=== PATIENT | male | born 2000 | race African-American/Black ===

== ENCOUNTER 2020-01-12 22:26 | Emergency (ER) | payer MEDICAID ==
[~2020-01-12] VITALS: Ht 157.5 cm; Wt 49.9 kg
[2020-01-12] MEDS ORDERED: methylPREDNISolone SOD SUCC 125 MG/2 ML VL IV ONE (22:30)
[2020-01-12] MEDS ORDERED: SODIUM CHLORIDE 0.9% 1,000 ML IV ONE (22:30)
[2020-01-12 22:31] VITALS: BP 125/84
[2020-01-12] MEDS ORDERED: methylPREDNISolone SOD SUCC 125 MG/2 ML VL ONE (22:33)
== END 2020-01-12 23:07 | disposition home or self-care (01) ==
LOC: ER 22:29
DX: T78.40XA Allergy, unspecified, initial encounter (principal); X58.XXXA Exposure to other specified factors, initial encounter
CPT/HCPCS: 96374; 99283; J2930

== ENCOUNTER 2020-04-26 13:04 | Emergency (ER) | payer MEDICAID ==
[~2020-04-26] VITALS: Ht 160 cm; Wt 49.9 kg
[2020-04-26] MEDS ORDERED: KETOROLAC TROMETH 60MG/2ML VIAL IM ONE (15:15)
[2020-04-26 16:00] VITALS: BP 113/77
== END 2020-04-26 16:29 | disposition home or self-care (01) ==
LOC: ER 13:04
DX: G43.909 Migraine, unspecified, not intractable, without status migrainosus (principal); R42 Dizziness and giddiness
CPT/HCPCS: 96372; 99283; J1885

== ENCOUNTER 2020-07-06 18:36 | Emergency (ER) | payer MEDICAID ==
[~2020-07-06] VITALS: Ht 157.5 cm; Wt 49.9 kg
[2020-07-06 18:55] VITALS: BP 115/72
== END 2020-07-06 20:16 | disposition home or self-care (01) ==
LOC: ER 18:36
DX: U07.1 COVID-19 (principal)
CPT/HCPCS: 36415; 87426

== ENCOUNTER 2021-02-07 17:41 | Emergency (ER) | payer MEDICAID ==
[~2021-02-07] VITALS: Ht 157.5 cm; Wt 49.9 kg
[2021-02-07 18:46] LABS: Basophils # (auto) 0 10 ^3/uL (0-0.2); Basophils % (auto) 0.7 % (0.0-2.0); Eosinophils # (auto) 0 10 ^3/uL (0-0.8); Eosinophils % (auto) 0.4 % (0.0-7.0); Hematocrit 42.1 % (41.0-53.0); Hemoglobin 14.4 g/dL (13.5-17.5); Lymphocytes # (auto) 1.4 10 ^3/uL (0.4-5.4); Lymphocytes % (auto) 22.2 % (10.0-50.0); Mean Corpuscular Hemoglobin 28.6 pg (28.0-32.0); Mean Corpuscular Hgb Conc. 34.1 g/dL (32.0-36.0); Mean Corpuscular Volume 83.7 fL (80.0-100.0); Monocytes # (auto) 0.3 10 ^3/uL (0-1.3); Monocytes % (auto) 4.9 % (0.0-12.0); Neutrophils # (auto) 4.5 10 ^3/uL (1.6-8.6); Neutrophils % (auto) 71.8 % (37.0-80.0); Nucleated Red Blood Cells % 0.1 %; Red Blood Cells 5.03 10^6/uL (4.5-5.90); Red Cell Distribution Width 13.8 % (11.8-14.3); White Blood Cell 6.3 10^3/uL (4.4-10.8)
[2021-02-07] MEDS ORDERED: METOCLOPRAMIDE HCL 5MG/ml INJ 2ml VIAL IV ONE (19:00)
[2021-02-07] MEDS ORDERED: ACETAMINOPHEN 500 MG TAB PO ONE (19:00)
[2021-02-07] MEDS ORDERED: SODIUM CHLORIDE 0.9% 1,000 ML IV ONE (19:00)
[2021-02-07] MEDS ORDERED: KETOROLAC TROMETH 30 MG/ML 1ML VIAL IV ONE (19:00)
[2021-02-07 19:05] LABS: Alanine Aminotransferase 15 U/L (16-61); Albumin 4.1 g/dL (3.4-5.0); Anion Gap 4 (5-15); Aspartate Aminotransferase 11 U/L (15-37); BUN/Creatinine Ratio 7.1; Blood Urea Nitrogen 6 mg/dL (7-18); Carbon Dioxide 29 mmol/L (21-32); Chloride 106 mmol/L (98-107); GFR African American 145 mL/min; GFR Non-African American 120 mL/min; Glucose 93 mg/dL (74-106); Potassium 3.7 mmol/L (3.5-5.1); Sodium 139 mmol/L (136-145)
[2021-02-07 19:10] LABS: Alkaline Phosphatase 64 U/L (45-117); Bilirubin, Total 0.5 mg/dL (0.2-1.0); Total Protein 7.8 g/dL (6.4-8.2)
[2021-02-07 23:00] VITALS: BP 130/84
== END 2021-02-08 00:44 | disposition left against medical advice (07) ==
LOC: ER 17:41
DX: R07.89 Other chest pain (principal); G43.909 Migraine, unspecified, not intractable, without status migrainosus; Z91.018 Allergy to other foods
CPT/HCPCS: 36415; 71046; 80053; 83735; 83880; 84484; 85025; 93005; 96361; 96374; 96375; 99285; J1885; J2765; J7030

== ENCOUNTER 2024-07-02 15:58 | Emergency (ER) | payer MEDICAID ==
[~2024-07-02] VITALS: Ht 160 cm; Wt 50.0 kg
[2024-07-02] MEDS: KETOROLAC TROMETH 30 MG/ML 1ML VIAL IM ONE (16:32)
[2024-07-02] MEDS: cefTRIAXone SOD 1,000 MG VL IM ONE (16:32)
--- NOTE | 2024-07-02 16:32 | ED.PDOC ---
History of Present Illness(SKN HPI Comments Portions of this chart may have been created with an modal fluency direct voice recognition software. Occasional wrong-word or "sound-alike" substitutions may have occurred due to the inherent limitations of voice recognition software. Please read the chart carefully and recognize, using context, where these substitutions have occurred. This is a pleasant 24-year-old male with no medication hx presents for a chief complaint of an insect bite x1 day. Bite is located to the posterior right thigh. Complains of redness tenderness to touch. No other complaint. Denies drainage from the affected side. Denies fevers chills. Able to ambulate without assistive devices. Has not tried medications for the symptoms listed above Chief Complaint: Insect Bite Time Seen by MD: 16:25 Primary Care Provider: DENIES History of Present Illness: Nurses Notes, Medications, Allergies Allergies: Coded Allergies: Avocado (Verified Allergy, Unknown, 02/07/21) Home Meds Active Scripts Ibuprofen Micronized (Ibuprofen) 800 Mg Tab, 800 MG PO TID for 14 Days, #42 TAB 0 Refills Prov:NICOLE OSORIO [employer] 07/02/24 Cephalexin Monohydrate (Cephalexin) 500 Mg Tab, 1 TAB PO QID for 5 Days, #20 TAB 0 Refills Prov:NICOLE OSORIO [employer] 07/02/24 Information Source: Patient Mode of Arrival: Ambulatory Past Medical History PAST MEDICAL HISTORY: Denies Surgical History: Denies all surgeries Family History Family History: Reviewed,noncontributory to illness Social History Smoker: Non-Smoker Alcohol: Denies ETOH Use Drugs: Denies Drug Use Lives In: Home All Other Systems: Reviewed and Negative (Per HPI) Physical Exam General Appearance: No Apparent Distress, Normal HEENT: Normal ENT Inspection, Pharynx Normal, TMs Normal Neck: Full Range of Motion, Non-Tender, Normal, Normal Inspection Respiratory: Chest Non-Tender, Lungs Clear, No Accessory Muscle Use, No Respiratory Distress, Normal Breath Sounds Cardiovascular: No Edema, No JVD, No Murmur, No Gallop, Normal Peripheral Pulses, Regular Rate/Rhythm Breast Exam: Deferred Gastrointestinal: No Organomegaly, Non Tender, No Pulsatile Mass, Normal Bowel Sounds, Soft Genitalia: Deferred Pelvic: Deferred Rectal: Deferred Extremities: No calf tenderness, Normal capillary refill, Normal inspection, Normal range of motion, Non-tender, No pedal edema Musculoskeletal : Apperance: Normal Neurologic: Alert, propellant assembler II-XII nml as Tested, No Motor Deficits, Normal Affect, Normal Mood, No Sensory Deficits Cerebellar Function: Normal Reflexes: Normal Skin: Dry, Normal Color, Warm Lymphatic: No Adenopathy Was a procedure done? Was a procedure done?: No Images 1 - pin point insect bite. ttp. no drainage. no open wound Differential Diagnosis (INTG) Differential Diagnosis: Puncture Wound, Other X-Ray, Labs, Meds, VS Vital Signs Date Time Temp Pulse Resp B/P (MAP) Pulse Ox O2 Delivery O2 Flow Rate FiO2 07/02/24 16:41 91 20 98 Room Air 07/02/24 16:41 98.5 91 20 130/91 (104) 98 98.5 07/02/24 16:04 98.5 91 20 130/91 (104) 98 Current Medications Medications (Trade) Dose Ordered Sig/Desiree Route Start Time Stop Time Status Last Admin Ceftriaxone Sodium (Rocephin) 1,000 mg ONCE ONCE IM 07/02/24 16:30 07/02/24 16:31 DC 07/02/24 16:32 Ketorolac Tromethamine (Toradol Injection) 30 mg ONCE ONCE IM 07/02/24 16:30 07/02/24 16:31 DC 07/02/24 16:32 X-Ray, Labs, Meds, VS Comment On reevaluation, patient had symptomatic improvement. No concerns for cellulitis. No indication for imaging or labs. Patient is stable for discharge at this time. External notes reviewed. Test results and diagnostic imaging interpreted. All diagnostic findings, discharge care, education and instructions provided Follow-up with PCP in 2 to 3 days Patient verbalized understanding and agreed to treatment plan Vital signs stable, afebrile, no acute distress noted Patient ambulatory with strong steady gait Advised to return precautions for any new or worsening symptoms, return to ER immediately for re-evaluation Patient is aware that the purpose of this visit was for an acute medical emergency requiring emergent stabilization. Chronic conditions, including malignancies have not been ruled out. Patient is instructed to follow up with PCP as directed and discharge instructions for continued care and workup. If unable to arrange follow-up, patient is to return to the emergency department for reassessment. Patient (parent or legal guardian if applicable) was given verbal and written discharge instructions and acknowledges understanding. Time of 1ST Reevaluation: 17:00 Reevaluation 1ST: Improved Patient Education/Counseling: Diagnosis, Treatment Family Education/Counseling: Diagnosis, Treatment Departure 1 Departure Time of Disposition: 17:10 Impression: Primary Impression: Insect bite Qualified Codes: S70.362A - Insect bite (nonvenomous), left thigh, initial encounter; W57.XXXA - Bitten or stung by nonvenomous insect and other nonvenomous arthropods, initial encounter Disposition: HOME / SELF CARE / HOMELESS Condition: Stable e-Prescriptions Ibuprofen Micronized (Ibuprofen) 800 Mg Tab 800 MG PO TID for 14 Days, #42 TAB 0 Refills Prov: NICOLE OSORIO NP 07/02/24 Cephalexin Monohydrate (Cephalexin) 500 Mg Tab 1 TAB PO QID for 5 Days, #20 TAB 0 Refills Prov: NICOLE OSORIO NP 07/02/24 Discharged With: Self Critical Care Note Critical Care Time?: No Stability Stability form required: No Heart Score Heart Score: Heart Score Response (Comments) Value History N/A 0 EKG N/A 0 Age N/A 0 Risk Factors N/A 0 Troponin N/A 0 Total 0 NICOLE OSORIO NP Jul 02, 2024 16:32
[2024-07-02] MEDS ORDERED: IBUP-1455 PO (16:35)
[2024-07-02] MEDS ORDERED: CEPH500T PO (16:35)
[2024-07-02 16:41] VITALS: BP 130/91; PULSE 91; RESP 20; TEMP 98.5; O2SAT 98
== END 2024-07-02 17:17 | disposition home or self-care (01) ==
LOC: ER 15:58
DX: S70.361A Insect bite (nonvenomous), right thigh, initial encounter (principal); Z79.1 Long term (current) use of non-steroidal anti-inflammatories (NSAID); W57.XXXA Bitten or stung by nonvenomous insect and other nonvenomous arthropods, initial encounter; Y93.89 Activity, other specified; Y92.89 Other specified places as the place of occurrence of the external cause; Y99.8 Other external cause status
CPT/HCPCS: 96372; 99284; J0696; J1885